=== PATIENT | female | born 1970 | race Caucasian/White ===

== ENCOUNTER 2017-02-06 14:18 | Inpatient (IN) | payer BC ==
[~2017-02-06] VITALS: Ht 157.5 cm; Wt 92.5 kg
[2017-02-06 15:31] LABS: ALKALINE PHOSPHATASE 362 U/L (46-116); ALT/SGPT 27 U/L (14-59); AMYLASE 30 U/L (25-115); AST/SGOT 31 U/L (15-37); BILIRUBIN TOTAL 1.3 mg/dL (0.20-1.00); CALCIUM 7.1 mg/dL (8.5-10.1); CARBON DIOXIDE 25.9 mmol/L (21-32); CHLORIDE SERUM 103 mmol/L (98-107); CHOLESTEROL 140 mg/dL (<200); CREATININE SERUM 3.8 mg/dL (0.6-1.0); GFR1 14 mL/min; GLUCOSE SERUM 80 mg/dL (74-106); LIPASE 97 IU/L (73-393); MAGNESIUM 1.9 mg/dL (1.8-2.4); SODIUM SERUM 143 mmol/L (136-145); T4(THYROXINE) 5.6 ug/dL (4.7-13.3); TOTAL PROTEIN, SERUM 6.4 g/dL (6.4-8.2)
[2017-02-06 15:32] LABS: HDL CHOLESTEROL 10 mg/dL (40-60)
[2017-02-06 15:44] LABS: RED CELL DISTRIBUTION WIDTH 16.2 % (11.5-14.5)
[2017-02-06 15:45] LABS: PLATELET COUNT 41 x10^3mcL (130-400)
[2017-02-06 16:08] LABS: UA SPECIFIC GRAVITY 1.015 (1.005-1.035); microscopic required? YES; urine erythrocyte 2+ (NEGATIVE)
[2017-02-06 16:21] LABS: AMPHETAMINE QUAL UR NONE DETECTED (NEG <=1000)
[2017-02-06 16:22] LABS: BAND NEUTROPHIL 0 % (0-10); BASOPHIL 0 % (0-2); MONOCYTE 1 % (0-7); PLATELET MORPHOLOGY PLATELETS DECREASED; SEGMENTED NEUTROPHILS 95 % (37-75); rbc morphology (normal/abnorm) NORMAL (NORMAL)
[2017-02-06] MEDS ORDERED: ALPRAZOLAM2 MG PO (17:35)
[2017-02-06] MEDS ORDERED: AMBIEN10 MG PO (17:35)
[2017-02-06] MEDS ORDERED: ZOLOFT100 MG PO (17:36)
[2017-02-06] MEDS ORDERED: RIZATRIPTAN BEN10 M1 PO (17:37)
[2017-02-06 19:58] VITALS: BP 88/64
[2017-02-06 23:00] VITALS: BP 108/62
[2017-02-07] VITALS (13 sets, daily range): BP systolic 81–125; BP diastolic 47–85
[2017-02-07 05:52] LABS: BASOPHIL % 0 % (0-2); RED CELL DISTRIBUTION WIDTH 16.6 % (11.5-14.5)
[2017-02-07 06:04] LABS: PLATELET COUNT 27 x10^3mcL (130-400)
[2017-02-07 06:10] LABS: CALCIUM 6.5 mg/dL (8.5-10.1); CARBON DIOXIDE 19.9 mmol/L (21-32); MAGNESIUM 1.8 mg/dL (1.8-2.4); PHOSPHOROUS 2.7 mg/dL (2.5-4.9); POTASSIUM SERUM 3.1 mmol/L (3.5-5.1)
[2017-02-07 15:11] LABS: CALCIUM 6.3 mg/dL (8.5-10.1); CREATININE SERUM 1.8 mg/dL (0.6-1.0); POTASSIUM SERUM 3.1 mmol/L (3.5-5.1)
[2017-02-07 17:36] LABS: RED CELL DISTRIBUTION WIDTH 16.8 % (11.5-14.5)
[2017-02-07 17:37] LABS: PLATELET COUNT 26 x10^3mcL (130-400)
[2017-02-07 17:44] LABS: BAND NEUTROPHIL 5 % (0-10); BASOPHIL 0 % (0-2); MONOCYTE 1 % (0-7); SEGMENTED NEUTROPHILS 89 % (37-75); rbc morphology (normal/abnorm) ABNORMAL (NORMAL)
[2017-02-08] VITALS (17 sets, daily range): BP systolic 89–115; BP diastolic 50–71
[2017-02-08 05:48] LABS: BASOPHIL % 0.1 % (0-2)
[2017-02-08 05:52] LABS: RED CELL DISTRIBUTION WIDTH 15.7 % (11.5-14.5)
[2017-02-08 05:57] LABS: CARBON DIOXIDE 20.8 mmol/L (21-32); CREATININE SERUM 1.3 mg/dL (0.6-1.0); MAGNESIUM 1.8 mg/dL (1.8-2.4); PHOSPHOROUS 3.1 mg/dL (2.5-4.9); POTASSIUM SERUM 3.1 mmol/L (3.5-5.1)
[2017-02-08 06:09] LABS: PLATELET COUNT 18 x10^3mcL (130-400)
[2017-02-09] VITALS (22 sets, daily range): BP systolic 91–148; BP diastolic 50–89
[2017-02-09 09:27] LABS: CALCIUM 7.2 mg/dL (8.5-10.1); CARBON DIOXIDE 25.8 mmol/L (21-32); CREATININE SERUM 1.2 mg/dL (0.6-1.0)
[2017-02-09 09:43] LABS: POTASSIUM SERUM 2.9 mmol/L (3.5-5.1)
[2017-02-09 09:50] LABS: BASOPHIL % 0.1 % (0-2)
[2017-02-09 09:54] LABS: PLATELET COUNT 10 x10^3mcL (130-400)
[2017-02-09 16:50] LABS: UA SPECIFIC GRAVITY 1.015 (1.005-1.035); microscopic required? YES; urine erythrocyte 2+ (NEGATIVE)
[2017-02-09 22:43] LABS: CARBON DIOXIDE 22.7 mmol/L (21-32); CHLORIDE SERUM 117 mmol/L (98-107); GFR1 > 60 mL/min; GLUCOSE SERUM 162 mg/dL (74-106); POTASSIUM SERUM 3.4 mmol/L (3.5-5.1); SODIUM SERUM 151 mmol/L (136-145)
[2017-02-10] VITALS (16 sets, daily range): BP systolic 97–128; BP diastolic 57–75
[2017-02-10 05:36] LABS: CALCIUM 7.3 mg/dL (8.5-10.1); CHLORIDE SERUM 115 mmol/L (98-107); GFR1 > 60 mL/min; GLUCOSE SERUM 199 mg/dL (74-106); MAGNESIUM 1.8 mg/dL (1.8-2.4); PHOSPHOROUS 3.5 mg/dL (2.5-4.9); POTASSIUM SERUM 3.3 mmol/L (3.5-5.1); SODIUM SERUM 148 mmol/L (136-145)
[2017-02-10 05:40] LABS: BASOPHIL % 0 % (0-2); PLATELET COUNT 16 x10^3mcL (130-400); RED CELL DISTRIBUTION WIDTH 17.4 % (11.5-14.5)
[2017-02-10 20:51] LABS: BASOPHIL % 0 % (0-2); RED CELL DISTRIBUTION WIDTH 17.5 % (11.5-14.5)
[2017-02-10 20:52] LABS: PLATELET COUNT 40 x10^3mcL (130-400)
[2017-02-11] VITALS (19 sets, daily range): BP systolic 104–130; BP diastolic 57–83
[2017-02-11 05:30] LABS: BASOPHIL % 0 % (0-2); RED CELL DISTRIBUTION WIDTH 16.9 % (11.5-14.5)
[2017-02-11 05:31] LABS: PLATELET COUNT 32 x10^3mcL (130-400)
[2017-02-11 05:41] LABS: CALCIUM 7.2 mg/dL (8.5-10.1); CARBON DIOXIDE 25.4 mmol/L (21-32); CHLORIDE SERUM 114 mmol/L (98-107); CREATININE SERUM 0.8 mg/dL (0.6-1.0); GFR1 > 60 mL/min; GLUCOSE SERUM 175 mg/dL (74-106); MAGNESIUM 1.6 mg/dL (1.8-2.4); PHOSPHOROUS 3.1 mg/dL (2.5-4.9); POTASSIUM SERUM 3.8 mmol/L (3.5-5.1); SODIUM SERUM 145 mmol/L (136-145)
[2017-02-12] VITALS (17 sets, daily range): BP systolic 116–151; BP diastolic 57–90
[2017-02-12 05:18] LABS: CALCIUM 7.4 mg/dL (8.5-10.1); CARBON DIOXIDE 24.4 mmol/L (21-32); CHLORIDE SERUM 113 mmol/L (98-107); CREATININE SERUM 0.7 mg/dL (0.6-1.0); GFR1 > 60 mL/min; GLUCOSE SERUM 125 mg/dL (74-106); MAGNESIUM 1.8 mg/dL (1.8-2.4); PHOSPHOROUS 3.4 mg/dL (2.5-4.9); POTASSIUM SERUM 3.8 mmol/L (3.5-5.1); SODIUM SERUM 145 mmol/L (136-145)
[2017-02-12 05:51] LABS: BASOPHIL % 0.1 % (0-2); PLATELET COUNT 25 x10^3mcL (130-400); RED CELL DISTRIBUTION WIDTH 16.2 % (11.5-14.5)
[2017-02-13] VITALS (20 sets, daily range): BP systolic 91–146; BP diastolic 38–82
[2017-02-13 04:59] LABS: PLATELET COUNT 34 x10^3mcL (130-400)
[2017-02-13 05:01] LABS: CALCIUM 7.1 mg/dL (8.5-10.1); CARBON DIOXIDE 26.6 mmol/L (21-32); CHLORIDE SERUM 106 mmol/L (98-107); CREATININE SERUM 0.7 mg/dL (0.6-1.0); GFR1 > 60 mL/min; GLUCOSE SERUM 105 mg/dL (74-106); MAGNESIUM 1.2 mg/dL (1.8-2.4); PHOSPHOROUS 2.8 mg/dL (2.5-4.9); SODIUM SERUM 142 mmol/L (136-145)
[2017-02-13 05:04] LABS: POTASSIUM SERUM 2.8 mmol/L (3.5-5.1)
[2017-02-13 05:16] LABS: BAND NEUTROPHIL 4 % (0-10); METAMYELOCTE 2 % (0-2); MONOCYTE 1 % (0-7); SEGMENTED NEUTROPHILS 87 % (37-75)
[2017-02-13 05:19] LABS: rbc morphology (normal/abnorm) ABNORMAL (NORMAL)
[2017-02-13 13:42] LABS: CARBON DIOXIDE 27.3 mmol/L (21-32); CHLORIDE SERUM 107 mmol/L (98-107); CREATININE SERUM 0.7 mg/dL (0.6-1.0); GFR1 > 60 mL/min; GLUCOSE SERUM 89 mg/dL (74-106); POTASSIUM SERUM 3.2 mmol/L (3.5-5.1); SODIUM SERUM 141 mmol/L (136-145)
[2017-02-14] VITALS (18 sets, daily range): BP systolic 107–196; BP diastolic 52–105
[2017-02-14 05:32] LABS: RED CELL DISTRIBUTION WIDTH 15.4 % (11.5-14.5)
[2017-02-14 05:33] LABS: PLATELET COUNT 36 x10^3mcL (130-400)
[2017-02-14 05:36] LABS: CALCIUM 6.9 mg/dL (8.5-10.1); CARBON DIOXIDE 28.1 mmol/L (21-32); CHLORIDE SERUM 101 mmol/L (98-107); CREATININE SERUM 0.6 mg/dL (0.6-1.0); GFR1 > 60 mL/min; GLUCOSE SERUM 95 mg/dL (74-106); MAGNESIUM 1.5 mg/dL (1.8-2.4); PHOSPHOROUS 3.4 mg/dL (2.5-4.9); POTASSIUM SERUM 3.1 mmol/L (3.5-5.1); SODIUM SERUM 136 mmol/L (136-145)
[2017-02-14 07:31] LABS: BAND NEUTROPHIL 1 % (0-10); BASOPHIL 0 % (0-2); SEGMENTED NEUTROPHILS 92 % (37-75)
[2017-02-14 07:32] LABS: PLATELET MORPHOLOGY PLATELETS DECREASED; rbc morphology (normal/abnorm) ABNORMAL (NORMAL)
[2017-02-15] VITALS (16 sets, daily range): BP systolic 85–134; BP diastolic 42–108
[2017-02-15 05:46] LABS: CALCIUM 7.2 mg/dL (8.5-10.1); CHLORIDE SERUM 103 mmol/L (98-107); CREATININE SERUM 0.4 mg/dL (0.6-1.0); GFR1 > 60 mL/min; GLUCOSE SERUM 78 mg/dL (74-106); MAGNESIUM 1.4 mg/dL (1.8-2.4); POTASSIUM SERUM 3.1 mmol/L (3.5-5.1); SODIUM SERUM 137 mmol/L (136-145)
[2017-02-15 05:58] LABS: PLATELET COUNT 51 x10^3mcL (130-400); RED CELL DISTRIBUTION WIDTH 15.7 % (11.5-14.5)
[2017-02-15 06:13] LABS: BAND NEUTROPHIL 6 % (0-10); METAMYELOCTE 2 % (0-2); MONOCYTE 2 % (0-7); MYELOCYTE 1 % (0-2); SEGMENTED NEUTROPHILS 78 % (37-75)
[2017-02-15 06:16] LABS: rbc morphology (normal/abnorm) ABNORMAL (NORMAL)
[2017-02-16] VITALS (19 sets, daily range): BP systolic 90–122; BP diastolic 50–85
[2017-02-16 05:44] LABS: PLATELET COUNT 87 x10^3mcL (130-400); RED CELL DISTRIBUTION WIDTH 15.4 % (11.5-14.5)
[2017-02-16 05:46] LABS: CALCIUM 7.3 mg/dL (8.5-10.1); CARBON DIOXIDE 31.6 mmol/L (21-32); CHLORIDE SERUM 106 mmol/L (98-107); CREATININE SERUM 0.6 mg/dL (0.6-1.0); GFR1 > 60 mL/min; GLUCOSE SERUM 85 mg/dL (74-106); MAGNESIUM 1.7 mg/dL (1.8-2.4); PHOSPHOROUS 2.9 mg/dL (2.5-4.9); POTASSIUM SERUM 3.7 mmol/L (3.5-5.1); SODIUM SERUM 140 mmol/L (136-145)
[2017-02-16 06:12] LABS: BAND NEUTROPHIL 4 % (0-10); MONOCYTE 3 % (0-7); SEGMENTED NEUTROPHILS 75 % (37-75)
[2017-02-16 06:14] LABS: rbc morphology (normal/abnorm) ABNORMAL (NORMAL)
[2017-02-16] MEDS ORDERED: PROAIR HFA8.5 GM (11:16)
[2017-02-16] MEDS ORDERED: LYRICA100 M1 (11:16)
[2017-02-16] MEDS ORDERED: CYCLOBENZAPRINE5 MG (11:17)
[2017-02-17] VITALS (18 sets, daily range): BP systolic 116–151; BP diastolic 57–76
[2017-02-17 05:19] LABS: PLATELET COUNT 158 x10^3mcL (130-400)
[2017-02-17 05:29] LABS: CALCIUM 7.3 mg/dL (8.5-10.1); CARBON DIOXIDE 31.9 mmol/L (21-32); CHLORIDE SERUM 105 mmol/L (98-107); CREATININE SERUM 0.7 mg/dL (0.6-1.0); GFR1 > 60 mL/min; GLUCOSE SERUM 91 mg/dL (74-106); MAGNESIUM 1.9 mg/dL (1.8-2.4); PHOSPHOROUS 3.2 mg/dL (2.5-4.9); POTASSIUM SERUM 3.7 mmol/L (3.5-5.1); SODIUM SERUM 140 mmol/L (136-145)
[2017-02-17 05:48] LABS: RED CELL DISTRIBUTION WIDTH 15.4 % (11.5-14.5)
[2017-02-17 06:06] LABS: BAND NEUTROPHIL 0 % (0-10); BASOPHIL 0 % (0-2); MONOCYTE 7 % (0-7); SEGMENTED NEUTROPHILS 76 % (37-75)
[2017-02-17 06:07] LABS: PLATELET MORPHOLOGY PLATELETS NORMAL; rbc morphology (normal/abnorm) ABNORMAL (NORMAL)
[2017-02-18] VITALS (19 sets, daily range): BP systolic 113–151; BP diastolic 55–89
[2017-02-18 05:48] LABS: BASOPHIL % 0.2 % (0-2); PLATELET COUNT 160 x10^3mcL (130-400)
[2017-02-18 06:02] LABS: CARBON DIOXIDE 25.9 mmol/L (21-32); CHLORIDE SERUM 107 mmol/L (98-107); CREATININE SERUM 0.8 mg/dL (0.6-1.0); GFR1 > 60 mL/min; GLUCOSE SERUM 134 mg/dL (74-106); MAGNESIUM 2.2 mg/dL (1.8-2.4); PHOSPHOROUS 4.4 mg/dL (2.5-4.9); POTASSIUM SERUM 4.5 mmol/L (3.5-5.1); RED CELL DISTRIBUTION WIDTH 15.1 % (11.5-14.5); SODIUM SERUM 141 mmol/L (136-145)
[2017-02-19] VITALS (17 sets, daily range): BP systolic 114–1142; BP diastolic 64–100
[2017-02-19 05:09] LABS: PLATELET COUNT 313 x10^3mcL (130-400)
[2017-02-19 05:22] LABS: RED CELL DISTRIBUTION WIDTH 14.8 % (11.5-14.5)
[2017-02-19 05:31] LABS: CARBON DIOXIDE 29.8 mmol/L (21-32); CHLORIDE SERUM 108 mmol/L (98-107); CREATININE SERUM 0.8 mg/dL (0.6-1.0); GFR1 > 60 mL/min; GLUCOSE SERUM 162 mg/dL (74-106); MAGNESIUM 2.2 mg/dL (1.8-2.4); PHOSPHOROUS 2.6 mg/dL (2.5-4.9); POTASSIUM SERUM 3.8 mmol/L (3.5-5.1); SODIUM SERUM 143 mmol/L (136-145)
[2017-02-19 05:56] LABS: BAND NEUTROPHIL 2 % (0-10); BASOPHIL 0 % (0-2); METAMYELOCTE 1 % (0-2); MONOCYTE 4 % (0-7); SEGMENTED NEUTROPHILS 88 % (37-75)
[2017-02-19 05:58] LABS: rbc morphology (normal/abnorm) ABNORMAL (NORMAL); target cell (codocyte) 2+
[2017-02-19 09:31] LABS: RED BLOOD CELLS 2.05 M/mm3 (4.10-5.10)
[2017-02-19 10:16] LABS: IRON 61 ug/dL (50-170); TOTAL IRON BINDING CAPACITY 171 ug/dL (250-450)
[2017-02-19 17:05] LABS: PLATELET COUNT 316 x10^3mcL (130-400); RED CELL DISTRIBUTION WIDTH 14.7 % (11.5-14.5)
[2017-02-19 17:50] LABS: BAND NEUTROPHIL 2 % (0-10); SEGMENTED NEUTROPHILS 88 % (37-75)
[2017-02-19 17:52] LABS: MONOCYTE 3 % (0-7)
[2017-02-19 17:53] LABS: rbc morphology (normal/abnorm) ABNORMAL (NORMAL)
[2017-02-19 17:54] LABS: PLATELET MORPHOLOGY PLATELETS NORMAL
[2017-02-20] VITALS (17 sets, daily range): BP systolic 141–175; BP diastolic 36–106
[2017-02-20 05:22] LABS: BASOPHIL % 0.1 % (0-2); PLATELET COUNT 297 x10^3mcL (130-400)
[2017-02-20 05:53] LABS: rbc morphology (normal/abnorm) ABNORMAL (NORMAL)
[2017-02-20 05:56] LABS: CALCIUM 7.9 mg/dL (8.5-10.1); CARBON DIOXIDE 33.3 mmol/L (21-32); CHLORIDE SERUM 109 mmol/L (98-107); CREATININE SERUM 0.8 mg/dL (0.6-1.0); GFR1 > 60 mL/min; GLUCOSE SERUM 137 mg/dL (74-106); MAGNESIUM 2.1 mg/dL (1.8-2.4); PHOSPHOROUS 2.8 mg/dL (2.5-4.9); POTASSIUM SERUM 3.2 mmol/L (3.5-5.1); SODIUM SERUM 146 mmol/L (136-145)
[2017-02-20 21:59] LABS: PLATELET COUNT 244 x10^3mcL (130-400)
[2017-02-20 22:05] LABS: RED CELL DISTRIBUTION WIDTH 15.5 % (11.5-14.5)
[2017-02-20 22:22] LABS: BAND NEUTROPHIL 4 % (0-10); BASOPHIL 0 % (0-2); MONOCYTE 2 % (0-7); SEGMENTED NEUTROPHILS 87 % (37-75)
[2017-02-20 22:28] LABS: rbc morphology (normal/abnorm) ABNORMAL (NORMAL)
[2017-02-20 22:29] LABS: schistocyte (helmet cell) 1+; target cell (codocyte) 1+
[2017-02-21] VITALS (18 sets, daily range): BP systolic 142–169; BP diastolic 78–97
[2017-02-21 05:42] LABS: BASOPHIL % 0.1 % (0-2); PLATELET COUNT 270 x10^3mcL (130-400)
[2017-02-21 05:59] LABS: CALCIUM 7.8 mg/dL (8.5-10.1); CARBON DIOXIDE 29.8 mmol/L (21-32); CHLORIDE SERUM 111 mmol/L (98-107); CREATININE SERUM 0.7 mg/dL (0.6-1.0); GFR1 > 60 mL/min; GLUCOSE SERUM 150 mg/dL (74-106); MAGNESIUM 1.9 mg/dL (1.8-2.4); PHOSPHOROUS 2.6 mg/dL (2.5-4.9); POTASSIUM SERUM 3.6 mmol/L (3.5-5.1); SODIUM SERUM 146 mmol/L (136-145)
[2017-02-21 06:06] LABS: RED CELL DISTRIBUTION WIDTH 15.7 % (11.5-14.5)
[2017-02-22] VITALS (18 sets, daily range): BP systolic 133–202; BP diastolic 56–135
[2017-02-22 06:06] LABS: CALCIUM 7.6 mg/dL (8.5-10.1); CARBON DIOXIDE 34.1 mmol/L (21-32); CHLORIDE SERUM 106 mmol/L (98-107); CREATININE SERUM 0.7 mg/dL (0.6-1.0); GFR1 > 60 mL/min; GLUCOSE SERUM 149 mg/dL (74-106); MAGNESIUM 1.7 mg/dL (1.8-2.4); PHOSPHOROUS 3.5 mg/dL (2.5-4.9); POTASSIUM SERUM 3.5 mmol/L (3.5-5.1); SODIUM SERUM 144 mmol/L (136-145)
[2017-02-22 06:10] LABS: BASOPHIL % 0.1 % (0-2); PLATELET COUNT 260 x10^3mcL (130-400)
[2017-02-22 06:18] LABS: RED CELL DISTRIBUTION WIDTH 15.7 % (11.5-14.5)
[2017-02-23] VITALS (18 sets, daily range): BP systolic 110–175; BP diastolic 46–123
[2017-02-23 05:54] LABS: PLATELET COUNT 220 x10^3mcL (130-400)
[2017-02-23 05:59] LABS: RED CELL DISTRIBUTION WIDTH 15.7 % (11.5-14.5)
[2017-02-23 06:24] LABS: CALCIUM 7.9 mg/dL (8.5-10.1); CHLORIDE SERUM 103 mmol/L (98-107); CREATININE SERUM 0.7 mg/dL (0.6-1.0); GFR1 > 60 mL/min; GLUCOSE SERUM 154 mg/dL (74-106); MAGNESIUM 1.9 mg/dL (1.8-2.4); PHOSPHOROUS 3.7 mg/dL (2.5-4.9); POTASSIUM SERUM 3.6 mmol/L (3.5-5.1); SODIUM SERUM 140 mmol/L (136-145)
[2017-02-23 08:52] LABS: BAND NEUTROPHIL 3 % (0-10); MONOCYTE 1 % (0-7); SEGMENTED NEUTROPHILS 94 % (37-75); rbc morphology (normal/abnorm) NORMAL (NORMAL)
[2017-02-24] VITALS (17 sets, daily range): BP systolic 89–143; BP diastolic 44–93
[2017-02-24 06:09] LABS: CALCIUM 7.6 mg/dL (8.5-10.1); CARBON DIOXIDE 31.2 mmol/L (21-32); CHLORIDE SERUM 104 mmol/L (98-107); CREATININE SERUM 0.6 mg/dL (0.6-1.0); GFR1 > 60 mL/min; GLUCOSE SERUM 124 mg/dL (74-106); MAGNESIUM 1.7 mg/dL (1.8-2.4); PHOSPHOROUS 3.9 mg/dL (2.5-4.9); POTASSIUM SERUM 3.8 mmol/L (3.5-5.1); SODIUM SERUM 140 mmol/L (136-145)
[2017-02-24 06:16] LABS: BASOPHIL % 0 % (0-2); PLATELET COUNT 126 x10^3mcL (130-400); RED CELL DISTRIBUTION WIDTH 15.9 % (11.5-14.5)
[2017-02-24 06:18] LABS: rbc morphology (normal/abnorm) ABNORMAL (NORMAL)
[2017-02-24 19:14] LABS: PLATELET COUNT 118 x10^3mcL (130-400); RED CELL DISTRIBUTION WIDTH 15.9 % (11.5-14.5)
[2017-02-24 20:47] LABS: BAND NEUTROPHIL 5 % (0-10); METAMYELOCTE 1 % (0-2); MONOCYTE 1 % (0-7); SEGMENTED NEUTROPHILS 90 % (37-75)
[2017-02-24 20:50] LABS: rbc morphology (normal/abnorm) ABNORMAL (NORMAL)
[2017-02-24 20:51] LABS: PLATELET MORPHOLOGY LARGE PLATELET SEEN
[2017-02-25] VITALS (17 sets, daily range): BP systolic 99–173; BP diastolic 51–95
[2017-02-25 04:55] LABS: PLATELET COUNT 92 x10^3mcL (130-400); RED CELL DISTRIBUTION WIDTH 16.9 % (11.5-14.5)
[2017-02-25 05:09] LABS: CALCIUM 7.7 mg/dL (8.5-10.1); CARBON DIOXIDE 31.2 mmol/L (21-32); CHLORIDE SERUM 103 mmol/L (98-107); CREATININE SERUM 0.8 mg/dL (0.6-1.0); GFR1 > 60 mL/min; GLUCOSE SERUM 185 mg/dL (74-106); MAGNESIUM 2.1 mg/dL (1.8-2.4); PHOSPHOROUS 3.5 mg/dL (2.5-4.9); POTASSIUM SERUM 3.4 mmol/L (3.5-5.1); SODIUM SERUM 140 mmol/L (136-145)
[2017-02-25 05:13] LABS: BAND NEUTROPHIL 11 % (0-10); BASOPHIL 0 % (0-2); METAMYELOCTE 2 % (0-2); MONOCYTE 1 % (0-7); SEGMENTED NEUTROPHILS 85 % (37-75)
[2017-02-25 05:16] LABS: rbc morphology (normal/abnorm) ABNORMAL (NORMAL); target cell (codocyte) 1+
[2017-02-25 05:18] LABS: PLATELET MORPHOLOGY PLATELETS NORMAL
[2017-02-25 11:58] LABS: PLATELET COUNT 89 x10^3mcL (130-400); RED CELL DISTRIBUTION WIDTH 16.2 % (11.5-14.5)
[2017-02-25 12:03] LABS: BAND NEUTROPHIL 14 % (0-10); BASOPHIL 0 % (0-2); METAMYELOCTE 2 % (0-2); MONOCYTE 1 % (0-7); MYELOCYTE 1 % (0-2); SEGMENTED NEUTROPHILS 81 % (37-75)
[2017-02-25 12:04] LABS: PLATELET MORPHOLOGY PLATELETS DECREASED; rbc morphology (normal/abnorm) ABNORMAL (NORMAL); target cell (codocyte) 1+
[2017-02-25 12:08] LABS: ALKALINE PHOSPHATASE 88 U/L (46-116); ALT/SGPT 57 U/L (14-59); AST/SGOT 73 U/L (15-37); BILIRUBIN TOTAL 0.34 mg/dL (0.20-1.00); CALCIUM 7.7 mg/dL (8.5-10.1); CHLORIDE SERUM 105 mmol/L (98-107); CREATININE SERUM 0.8 mg/dL (0.6-1.0); GFR1 > 60 mL/min; GLUCOSE SERUM 147 mg/dL (74-106); POTASSIUM SERUM 4.3 mmol/L (3.5-5.1); SODIUM SERUM 142 mmol/L (136-145)
[2017-02-25 12:12] LABS: ALBUMIN 1.4 g/dL (3.4-5.0)
[2017-02-25 15:39] LABS: BASOPHIL % 0 % (0-2); PLATELET COUNT 86 x10^3mcL (130-400); RED CELL DISTRIBUTION WIDTH 16.1 % (11.5-14.5)
[2017-02-25 23:11] LABS: BASOPHIL % 0 % (0-2); PLATELET COUNT 79 x10^3mcL (130-400); RED CELL DISTRIBUTION WIDTH 16.4 % (11.5-14.5)
[2017-02-26] VITALS (19 sets, daily range): BP systolic 117–140; BP diastolic 66–83
[2017-02-26 08:14] LABS: PLATELET COUNT 72 x10^3mcL (130-400); RED CELL DISTRIBUTION WIDTH 16.8 % (11.5-14.5)
[2017-02-26 08:18] LABS: CALCIUM 7.9 mg/dL (8.5-10.1); CARBON DIOXIDE 30.7 mmol/L (21-32); CHLORIDE SERUM 105 mmol/L (98-107); CREATININE SERUM 0.6 mg/dL (0.6-1.0); GFR1 > 60 mL/min; GLUCOSE SERUM 147 mg/dL (74-106); MAGNESIUM 1.9 mg/dL (1.8-2.4); PHOSPHOROUS 2.7 mg/dL (2.5-4.9); POTASSIUM SERUM 3.8 mmol/L (3.5-5.1); SODIUM SERUM 137 mmol/L (136-145)
[2017-02-26 08:52] LABS: BAND NEUTROPHIL 13 % (0-10); BASOPHIL 0 % (0-2); METAMYELOCTE 2 % (0-2); MONOCYTE 1 % (0-7); PLATELET MORPHOLOGY PLATELETS DECREASED; SEGMENTED NEUTROPHILS 82 % (37-75); rbc morphology (normal/abnorm) ABNORMAL (NORMAL)
[2017-02-26 08:53] LABS: target cell (codocyte) 1+
[2017-02-27] VITALS (11 sets, daily range): BP systolic 60–156; BP diastolic 39–82; Ht 157.5 cm; Wt 92.5 kg
[2017-02-27 05:47] LABS: BASOPHIL % 0.1 % (0-2)
[2017-02-27 06:01] LABS: PLATELET COUNT 104 x10^3mcL (130-400); RED CELL DISTRIBUTION WIDTH 17.2 % (11.5-14.5)
[2017-02-27 06:03] LABS: CALCIUM 7.9 mg/dL (8.5-10.1); CARBON DIOXIDE 35.1 mmol/L (21-32); CHLORIDE SERUM 105 mmol/L (98-107); CREATININE SERUM 0.6 mg/dL (0.6-1.0); GFR1 > 60 mL/min; GLUCOSE SERUM 153 mg/dL (74-106); MAGNESIUM 1.7 mg/dL (1.8-2.4); PHOSPHOROUS 3.6 mg/dL (2.5-4.9); POTASSIUM SERUM 4.8 mmol/L (3.5-5.1); SODIUM SERUM 140 mmol/L (136-145)
[2017-02-27 14:14] LABS: ALKALINE PHOSPHATASE 208 U/L (46-116); ALT/SGPT 259 U/L (14-59); AST/SGOT 354 U/L (15-37); BILIRUBIN TOTAL 0.38 mg/dL (0.20-1.00); CHLORIDE SERUM 106 mmol/L (98-107); GFR1 > 60 mL/min; GLUCOSE SERUM 182 mg/dL (74-106); MAGNESIUM 2.5 mg/dL (1.8-2.4); PHOSPHOROUS 4.6 mg/dL (2.5-4.9); SODIUM SERUM 140 mmol/L (136-145)
[2017-02-27 14:34] LABS: PLATELET COUNT 116 x10^3mcL (130-400); RED CELL DISTRIBUTION WIDTH 17.5 % (11.5-14.5)
[2017-02-27 14:35] LABS: ALBUMIN 1.2 g/dL (3.4-5.0)
[2017-02-27 15:53] LABS: BAND NEUTROPHIL 16 % (0-10); METAMYELOCTE 1 % (0-2); MONOCYTE 5 % (0-7); MYELOCYTE 1 % (0-2)
[2017-02-27 16:01] LABS: PLATELET MORPHOLOGY LARGE PLATELET SEEN
[2017-02-27 16:02] LABS: SEGMENTED NEUTROPHILS 74 % (37-75); rbc morphology (normal/abnorm) ABNORMAL (NORMAL)
== END 2017-02-27 16:57 | disposition expired | DRG 4 ==
LOC: ED 14:18 → DU 17:14 → IC 17:14
PROVIDERS: Emergency Medicine; Family Medicine; Family Medicine Sports Medicine; Internal Medicine Gastroenterology; Student in an Organized Health Care Education/Training Program; Surgery
PROC: 5A1955Z Respiratory Ventilation, Greater than 96 Consecutive Hours (ICD-10-PCS; 2017-02-07)
PROC: 0BH17EZ Insertion of Endotracheal Airway into Trachea, Via Natural or Artificial Opening (ICD-10-PCS; 2017-02-07)
PROC: 05HM33Z Insertion of Infusion Device into Right Internal Jugular Vein, Percutaneous Approach (ICD-10-PCS; 2017-02-07)
PROC: B543ZZA Ultrasonography of Right Jugular Veins, Guidance (ICD-10-PCS; 2017-02-07)
PROC: 0W9B30Z Drainage of Left Pleural Cavity with Drainage Device, Percutaneous Approach (ICD-10-PCS; 2017-02-10)
PROC: 0W9930Z Drainage of Right Pleural Cavity with Drainage Device, Percutaneous Approach (ICD-10-PCS; 2017-02-14)
PROC: 0W9930Z Drainage of Right Pleural Cavity with Drainage Device, Percutaneous Approach (ICD-10-PCS; 2017-02-17)
PROC: 0DHA8UZ Insertion of Feeding Device into Jejunum, Via Natural or Artificial Opening Endoscopic (ICD-10-PCS; 2017-02-24)
PROC: 0B110F4 Bypass Trachea to Cutaneous with Tracheostomy Device, Open Approach (ICD-10-PCS; principal; 2017-02-24 09:00)
PROC: 0W9930Z Drainage of Right Pleural Cavity with Drainage Device, Percutaneous Approach (ICD-10-PCS; 2017-02-25)
DX: A41.9 Sepsis, unspecified organism (principal); G93.41 Metabolic encephalopathy; E43 Unspecified severe protein-calorie malnutrition; J96.01 Acute respiratory failure with hypoxia; N17.0 Acute kidney failure with tubular necrosis; J69.0 Pneumonitis due to inhalation of food and vomit; R65.21 Severe sepsis with septic shock; N39.0 Urinary tract infection, site not specified; I82.C19 Acute embolism and thrombosis of unspecified internal jugular vein; E87.0 Hyperosmolality and hypernatremia; T85.9XXA Unspecified complication of internal prosthetic device, implant and graft, initial encounter; C50.912 Malignant neoplasm of unspecified site of left female breast; M94.0 Chondrocostal junction syndrome [Tietze]; F41.9 Anxiety disorder, unspecified; T81.82XA Emphysema (subcutaneous) resulting from a procedure, initial encounter; G43.909 Migraine, unspecified, not intractable, without status migrainosus; E87.6 Hypokalemia; R31.9 Hematuria, unspecified; R80.9 Proteinuria, unspecified; D64.9 Anemia, unspecified; Z79.899 Other long term (current) drug therapy; K52.9 Noninfective gastroenteritis and colitis, unspecified; D69.6 Thrombocytopenia, unspecified; K80.20 Calculus of gallbladder without cholecystitis without obstruction; E83.42 Hypomagnesemia; E87.8 Other disorders of electrolyte and fluid balance, not elsewhere classified; K76.89 Other specified diseases of liver; Y83.9 Surgical procedure, unspecified as the cause of abnormal reaction of the patient, or of later complication, without mention of misadventure at the time of the procedure; Y92.89 Other specified places as the place of occurrence of the external cause; E66.01 Morbid (severe) obesity due to excess calories; Z68.35 Body mass index [BMI] 35.0-35.9, adult
CPT/HCPCS: 36556; 36600; 43235; 76770; 82962; 83880; 85378; 87046; 87046-59; 87804; A4628; A7042; C1729; C9113; G0480; J0171; J0330; J0360; J0610; J1200; J1364; J1610; J1642; J1644; J1720; J1885; J1940; J1956; J2001; J2185; J2250; J2270; J2310; J2370; J2543; J2704; J2765; J2916; J2920; J2930; J3010; J3370; J3475; J3480; J3490; J7030; J7040; J7042; J7050; J7120; J7613; J7620; J7626; J8540; P9016; P9035; P9047; Q0092; Q0163